=== PATIENT | female | born 1945 | race Caucasian/White ===

== ENCOUNTER 2019-01-10 14:42 | Outpatient (CLI) | payer MEDICARE, OTHER ==
--- NOTE | 2019-01-10 16:24 | MMO ---
Bilateral MAMMO Bilat Screen [facility]. CLINICAL HISTORY: Patient is 73 years old and is seen for screening. The patient has the following family history of breast cancer: mother, at age 50. The patient has no personal history of cancer. The patient has a history of left Excisional Biopsy in 1973 - benign. VIEWS: The views performed were: bilateral craniocaudal with tomosynthesis and bilateral mediolateral oblique with tomosynthesis. FILMS COMPARED: The present examination has been compared to prior imaging studies performed at [facility] on 05/25/2005, 06/25/2006, 09/07/2007, 10/01/2008, 11/06/2009, 01/13/2011, 04/15/2012, 10/17/2013, 10/10/2015 and 06/28/2017, and at [facility] on 12/18/2003. MAMMOGRAM FINDINGS: The breasts are heterogeneously dense, which could obscure a lesion on mammography. There are stable benign appearing calcifications seen in both breasts. There are no suspicious masses, suspicious calcifications, or new areas of architectural distortion. IMPRESSION: THERE IS NO MAMMOGRAPHIC EVIDENCE OF MALIGNANCY. A ROUTINE FOLLOW-UP MAMMOGRAM IN 1 YEAR IS RECOMMENDED. THE RESULTS OF THIS EXAM WERE SENT TO THE PATIENT. ACR BI-RADS Category 2 - Benign finding MAMMOGRAPHY NOTE: 1. A negative mammogram report should not delay a biopsy if a dominant of clinically suspicious mass is present. 2. Approximately 10% to 15% of breast cancers are not detected by mammography. 3. Adenosis and dense breasts may obscure an underlying neoplasm.
== END 2019-01-10 14:43 | disposition home or self-care (01) ==
LOC: BICMAMMO 14:42
PROVIDERS: ATTEND Family Medicine
DX: Z12.31 Encounter for screening mammogram for malignant neoplasm of breast (principal); Z80.3 Family history of malignant neoplasm of breast
CPT/HCPCS: 77063; 77067

== ENCOUNTER 2019-09-11 10:11 | Outpatient (CLI) | payer MEDICARE, OTHER ==
--- NOTE | 2019-09-11 11:11 | ULT ---
Sonogram abdomen complete HISTORY: Abdominal pain. FINDINGS: Gallbladder has a normal appearance. Common duct is 0.4 cm. Liver has normal appearance wit hout focal mass or intrahepatic biliary dilatation. No free fluid. The spleen, kidneys, and visualized portions of the abdominal aorta, IVC, and pancreas are unremarkable. IMPRESSION: Normal exam.
== END 2019-09-11 10:12 | disposition home or self-care (01) ==
LOC: BICULT 10:11
PROVIDERS: ATTEND Family Medicine
DX: R10.11 Right upper quadrant pain (principal)
CPT/HCPCS: 76705

== ENCOUNTER 2019-11-20 10:31 | Outpatient (CLI) | payer MEDICARE, OTHER ==
--- NOTE | 2019-11-20 11:11 | CT ---
CT ABDOMEN AND PELVIS WITH IV CONTRAST 11/20/2019 CLINICAL INFORMATION: Right upper quadrant abdominal pain intermittently since August 2019. COMPARISON: 11/05/2016 Technique: Multiple contiguous axial CT images are obtained through the abdomen and pelvis with IV contrast. Cor onal reformatted images are provided. FINDINGS: Lower Chest: There is a stable approximately 5 mm pulmonary nodule in the lingula. Lung bases are oth erwise clear. Vessels: Abdominal aorta is normal in caliber. Abdomen: Portal vein:Patent Gallbladder: Decompressed but otherwise grossly normal in appearance for CT imaging. Liver: within normal limits. Spleen: within normal limits. Pancreas: within normal limits. Adrenals: within normal limits. Kidneys: within normal limits. Bowel: Normal caliber. Appendix: Not visualized, but no secondary signs to suggest appendicitis are seen Peritoneum: No ascites or free air; no fluid collection. Mesentery and Retroperitoneum: No enlarged mesenteric or retroperitoneal lymph nodes. Abdominal Wall: within normal limits. Pelvis: Reproductive Organs: Uterus is small in size with calcifications seen in the uterus likely due to enedina rine fibroids. This is a stable finding. Pelvis within normal limits. Bladder: within normal limits. Bones: No suspicious lytic or sclerotic osseous lesions are identified. IMPRESSION: No acute findings in the abdomen or pelvis.
[2019-11-20] MEDS ORDERED: Iopamidol-370 76% 500 ML 1 ML ONE (13:52)
== END 2019-11-20 10:32 | disposition home or self-care (01) ==
LOC: BICCT 10:31
PROVIDERS: ATTEND Internal Medicine Gastroenterology
DX: R10.11 Right upper quadrant pain (principal)
CPT/HCPCS: 74177; 82565; Q9967

== ENCOUNTER 2020-07-16 14:26 | Outpatient (CLI) | payer MEDICARE, OTHER ==
--- NOTE | 2020-07-16 16:11 | MMO ---
Bilateral MAMMO Bilat Screen [facility]. CLINICAL HISTORY: Patient is 75 years old and is seen for screening. The patient has the following family history of breast cancer: mother, at age 50. The patient has no personal history of cancer. The patient has a history of left Excisional Biopsy in 1973 - benign. VIEWS: The views performed were: bilateral craniocaudal with tomosynthesis and bilateral mediolateral oblique with tomosynthesis. FILMS COMPARED: The present examination has been compared to prior imaging studies performed at [facility] on 10/17/2013, 10/10/2015, 06/28/2017 and 01/10/2019. This study has been interpreted with the assistance of computer-aided detection. MAMMOGRAM FINDINGS: The breasts are heterogeneously dense, which could obscure a lesion on mammography. There are no suspicious masses, suspicious calcifications, or new areas of architectural distortion. IMPRESSION: THERE IS NO MAMMOGRAPHIC EVIDENCE OF MALIGNANCY. A ROUTINE FOLLOW-UP MAMMOGRAM IN 1 YEAR IS RECOMMENDED. THE RESULTS OF THIS EXAM WERE SENT TO THE PATIENT. ACR BI-RADS Category 1 - Negative MAMMOGRAPHY NOTE: 1. A negative mammogram report should not delay a biopsy if a dominant of clinically suspicious mass is present. 2. Approximately 10% to 15% of breast cancers are not detected by mammography. 3. Adenosis and dense breasts may obscure an underlying neoplasm. Reported by: Kulwinder CARBAJAL Electonically Signed: [id number]
== END 2020-07-16 14:27 | disposition home or self-care (01) ==
LOC: BICMAMMO 14:26
PROVIDERS: ATTEND Family Medicine
DX: Z12.31 Encounter for screening mammogram for malignant neoplasm of breast (principal); Z91.89 Other specified personal risk factors, not elsewhere classified; Z80.3 Family history of malignant neoplasm of breast
CPT/HCPCS: 77063; 77067

== ENCOUNTER 2021-09-09 13:33 | Outpatient (CLI) | payer MEDICARE, OTHER | END 2021-09-09 13:34 | disposition home or self-care (01) | LOC: BICMAMMO 13:33 | PROVIDERS: ATTEND Family Medicine | DX: Z12.31 Encounter for screening mammogram for malignant neoplasm of breast (principal); Z80.3 Family history of malignant neoplasm of breast; Z91.89 Other specified personal risk factors, not elsewhere classified | CPT/HCPCS: 77063; 77067 ==

== ENCOUNTER 2022-12-07 11:55 | Outpatient (CLI) | payer MEDICARE, OTHER | END 2022-12-07 11:56 | disposition home or self-care (01) | LOC: BICMAMMO 11:55 | PROVIDERS: ATTEND Family Medicine | DX: Z12.31 Encounter for screening mammogram for malignant neoplasm of breast (principal); R92.1 Mammographic calcification found on diagnostic imaging of breast; M85.88 Other specified disorders of bone density and structure, other site; M85.851 Other specified disorders of bone density and structure, right thigh; M85.852 Other specified disorders of bone density and structure, left thigh; Z91.89 Other specified personal risk factors, not elsewhere classified; Z80.3 Family history of malignant neoplasm of breast | CPT/HCPCS: 77063; 77067; 77080 ==